=== PATIENT | female | born 2000 | race African-American/Black ===

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

== ENCOUNTER 2019-12-24 17:59 | Emergency (ER) | payer MEDICAID ==
[~2019-12-24] VITALS: Ht 170.2 cm; Wt 75.6 kg
[2019-12-24 18:01] VITALS: BP 109/85
[2019-12-24] MEDS ORDERED: ONDANSETRON ODT 4 MG ONE (18:56)
[2019-12-24] MEDS ORDERED: CEFTRIAXONE 1,000 MG IM ONE (19:00)
[2019-12-24] MEDS ORDERED: ONDANSETRON ODT 4 MG PO ONE (19:00)
[2019-12-24] MEDS ORDERED: AZITHROMYCIN 500 MG TABLET PO ONE (19:00)
[2019-12-24] MEDS ORDERED: AZITHROMYCIN 500 MG TABLET ONE (19:06)
[2019-12-24] MEDS ORDERED: LIDOCAINE-MPF 1%, 2ML ONE (19:06)
[2019-12-24] MEDS ORDERED: CEFTRIAXONE 250 MG ONE (19:07)
[2019-12-24 19:32] LABS: MICROSCOPIC INDICATED
== END 2019-12-24 20:25 | disposition home or self-care (01) ==
LOC: ED 20:00
DX: O23.11 Infections of bladder in pregnancy, first trimester (principal); A64 Unspecified sexually transmitted disease; R11.2 Nausea with vomiting, unspecified; R94.31 Abnormal electrocardiogram [ECG] [EKG]; Z3A.12 12 weeks gestation of pregnancy
CPT/HCPCS: 81001; 87086; 93005; 96372; 99284; J0696; Q0162